=== PATIENT | female | born 1990 | race Caucasian/White ===

== ENCOUNTER 2018-01-25 02:41 | Inpatient (IN) | payer BC ==
[2018-01-25 03:54] VITALS: BMI 33.1
[2018-01-25] MEDS ORDERED: Ondansetron HCl/PF 4 MG/2 ML Vial IVP PRN ×3 (04:13→14:48)
[2018-01-25] MEDS ORDERED: Acetaminophen 500 MG TAB PO PRN (04:13)
[2018-01-25] MEDS ORDERED: Butorphanol Tartrate 1 MG/ML VIAL SLOW IVP PRN (04:13)
[2018-01-25] MEDS ORDERED: Promethazine HCl 25 MG/ML VIAL IM PRN ×2 (04:13→09:17)
[2018-01-25] MEDS ORDERED: Lidocaine 1% (PF) 30 ML VIAL SC PRN (04:15)
[2018-01-25] MEDS ORDERED: Misoprostol 200 MCG TAB RC PRN (04:15)
[2018-01-25] MEDS ORDERED: Methylergonovine 0.2 MG/ML VIAL IM PRN (04:15)
[2018-01-25] MEDS ORDERED: Carboprost 250 MCG/ML AMP IM PRN (04:15)
[2018-01-25] MEDS ORDERED: HYDROcodone/Acetaminophen 5/325 mg Tablet PO PRN ×4 (04:15→14:48)
[2018-01-25] MEDS ORDERED: Ibuprofen 800 MG TAB PO PRN (04:15)
[2018-01-25] MEDS ORDERED: NS / Oxytocin 40 units/1000ml 1,000 ML IV SCH ×2 (04:15→14:48)
[2018-01-25] MEDS ORDERED: NS w/ Oxytocin 10 units 500 ML IV SCH ×2 (04:15)
[2018-01-25] MEDS: Misoprostol 100 MCG TAB PO SCH ×2 (04:35→15:24)
[2018-01-25] MEDS: Lactated Ringer's 1,000 ML IV SCH ×2 (04:35→15:24)
[2018-01-25 04:50] LABS: Hemoglobin 11.3 g/dL (12.0-16.0); Mean Corpuscular HGB CONC 32.8 g/dL (32.0-36.0); Mean Corpuscular Hemoglobin 30.9 pg (27.0-31.0); Mean Corpuscular Volume 94.1 fL (78.0-98.0); Mean Platelet Volume 8.3 fL (7.4-10.4); Platelet Count 203 thou/uL (130-400); RBC Distribution Width 14.7 % (11.5-14.5); Red Blood Cell (RBC) Count 3.67 mill/uL (4.20-5.40); White Blood Cell (WBC) Count 9.7 thou/uL (4.8-10.8)
[2018-01-25 05:08] LABS: HBSAg Index 0.33 S/CO (0-0.99); Hep B Surf Ag Non-Reactive S/CO (NonReactive)
[2018-01-25 05:45] LABS: Syphilis Antibody Nonreactive (Nonreactive); Syphilis Antibody Index 0.04 S/CO (<1.00 Non-Reactive)
[2018-01-25] MEDS ORDERED: Fentanyl 4 mcg/Bup 0.1% Cadd 100 ML ONE (08:21)
[2018-01-25] MEDS ORDERED: Naloxone HCl 0.4 mg/ml Vial IVP PRN ×2 (09:17)
[2018-01-25] MEDS ORDERED: diphenhydrAMINE 50 MG/ML VIAL IVP PRN (09:17)
[2018-01-25] MEDS ORDERED: Acetaminophen 325 MG TAB PO PRN (09:17)
[2018-01-25] MEDS ORDERED: ePHEDrine/0.9% NaCl/PF SYRINGE 50 mg/10 ml SLOW IVP PRN (09:17)
[2018-01-25] MEDS ORDERED: Eucerin (Mineral Oil/Petrolatum,White) 30 gm Jar TOP PRN (09:17)
[2018-01-25] MEDS ORDERED: Lactated Ringer's 500 ML IV PRN (09:17)
[2018-01-25] MEDS ORDERED: Communication Order-Pharmacy FS SCH (09:30)
[2018-01-25] MEDS ORDERED: Fentanyl 4 mcg/Bupivacaine 0.1% Cassette 100 ML EPIDURAL SCH (09:30)
--- NOTE | 2018-01-25 09:40 | PDOC.LDHP ---
Labor and Delivery H&P Chief complaint: loss of fluid HPI: 28yo at 39w by LMP with SROM early this morning, s/p cytotec 50mcg po x 1, now in active labor and working epidural. Current gestational age (weeks): 39 Dating criteria: last menstrual period Grav: 1 Para: 0 Current complications: none Abnormal US findings: No Past Medical History: proteinuria Current medications: pre- vitamins Previous surgical history: other (tibia surgery, wisdom teeth) Allergies/Adverse Reactions: Allergies Allergy/AdvReac Type Severity Reaction Status Date / Time No Known Allergies Allergy Verified 01/25/18 03:55 Social history: none - Physical Exam Vital signs reviewed and normal: yes General: NAD Heart: RRR Lungs: CTAB Abdomen: gravid Extremeties: no edema FHT: category 1 [place] contractions every: 3min - OB Labs RH: positive Antibody Screen: negative HIV: negative RPR: negative HEPSAg: negative 1 hour GCT: negative GBS: negative Urine drug screen: negative Rubella: immune - Assessment L&D Assessment: term rupture in membranes - Plan Plan: admit to L&D, labor augmentation if indicated, informed consent obtained
--- NOTE | 2018-01-25 10:57 | PDOC.OPDEL ---
OB Operative/Delivery Note Delivery Dr/Surgeon: Swapna Assist: n/a Pre-Delivery Diagnosis: ruptured membrane Procedure/Post Delivery Dx: spontaneous vaginal delivery Weeks gestation: 38 Anesthesia: epidural - Findings A Sex: female - 1 min: 8 - 5 min: 9 - Additional Findings/Plan Placenta delivered: spontaneous Repaired Obstetrical Laceration: 2nd degree (repaired with 2-0 vicryl in usual fashion, excellent hemostasis) Estimated blood loss: 300, qbl pending Post delivery plan: routine recovery
[2018-01-25] MEDS ORDERED: diphenhydrAMINE 25 MG CAP PO PRN (14:48)
[2018-01-25] MEDS ORDERED: Milk Of Magnesia 30 ML UDCUP PO PRN (14:48)
[2018-01-25] MEDS ORDERED: Lanolin Ointment 7 GM TUBE TOP PRN (14:48)
[2018-01-25] MEDS ORDERED: Benzocaine/Menthol 20-0.5% 60 ML CAN TOP PRN (14:48)
[2018-01-25] MEDS ORDERED: Bisacodyl 10 MG SUPP PR PRN (14:48)
[2018-01-25] MEDS ORDERED: Preparation H Ointment 28 GM TUBE PR PRN (14:48)
[2018-01-25] MEDS ORDERED: Adacel (T-DAP) 0.5 ML VIAL IM ONE (14:48)
[2018-01-25] MEDS: Ibuprofen 800 MG TAB PO SCH ×2 (15:06→23:24)
[2018-01-25] MEDS: Ferrous Sulfate 325 MG TAB PO SCH (15:23)
[2018-01-25] MEDS: Docusate Calcium (SURFAK) 240 MG CAP PO SCH (21:32)
[2018-01-26] MEDS: Ibuprofen 800 MG TAB PO SCH ×3 (06:41→22:29)
[2018-01-26] MEDS: Ferrous Sulfate 325 MG TAB PO SCH ×2 (07:49→17:17)
--- NOTE | 2018-01-26 07:51 | PDOC.PP ---
Post Progress Note Post Day #: 1 PO intake tolerated: yes Flatus: yes Ambulation: yes Vital Signs (12 hours) Temp Pulse Resp BP Pulse Ox 01/26/18 07:45 98.0 F 74 20 123/69 98 01/26/18 04:45 98.6 F 70 18 128/64 97 01/25/18 23:24 98.3 F 84 18 132/78 01/25/18 20:17 98.2 F 77 18 119/56 L 96 Weight Weight 193 lb - Physical Examination General: NAD Cardiovascular: RRR Respiratory: non-labored breathing Abdominal: no distention, appropriately TTP Fundus firm & at: umb Extremities: negative homans (B) Skin: no rash Neurological: no gross focal deficits Psychiatric: normal affect Result Diagrams: 01/25/18 04:24 Additional Labs: Post Labs Blood Type O POSITIVE 01/25/18 04:24 Hep Bs Antigen Non-Reactive S/CO (NonReactive) 01/25/18 04:24 - Assessment/Plan PPD1 s/p TSVD VSSAF Doing well appropriate lochia, pain controlled Rh pos RImm Cont PP care.
[2018-01-26] MEDS: Docusate Calcium (SURFAK) 240 MG CAP PO SCH ×2 (09:37→22:29)
[2018-01-26] MEDS: Prenatal Vitamin 1 TAB PO SCH (09:37)
[2018-01-27] MEDS: Ibuprofen 800 MG TAB PO SCH ×2 (06:25→13:48)
[2018-01-27 07:56] VITALS: BP 116/61; TEMP 98
--- NOTE | 2018-01-27 08:04 | PDOC.PP ---
Post Progress Note Post Day #: 2 PO intake tolerated: yes Flatus: yes Ambulation: yes Vital Signs (12 hours) Temp Pulse Resp BP Pulse Ox 01/27/18 07:54 98.0 F 64 18 116/61 96 01/26/18 20:16 97.6 F 73 18 125/66 97 Weight Weight 193 lb - Physical Examination General: NAD Cardiovascular: RRR Respiratory: non-labored breathing Abdominal: no distention, appropriately TTP Fundus firm & at: umb-2 Extremities: negative homans (B) Skin: no rash Neurological: no gross focal deficits Psychiatric: normal affect Result Diagrams: 01/25/18 04:24 Additional Labs: Post Labs Blood Type O POSITIVE 01/25/18 04:24 Hep Bs Antigen Non-Reactive S/CO (NonReactive) 01/25/18 04:24 - Assessment/Plan PPD2 s/p TSVD VSSAF Doing well no issues s/p LC Rhpos RImm DC home FU 6wk
[2018-01-27] MEDS: Ferrous Sulfate 325 MG TAB PO SCH (08:45)
[2018-01-27] MEDS: Prenatal Vitamin 1 TAB PO SCH (08:45)
[2018-01-27] MEDS: Docusate Calcium (SURFAK) 240 MG CAP PO SCH (08:45)
== END 2018-01-27 14:20 | disposition home or self-care (01) | DRG 807 ==
LOC: L&D/OP 02:41 → L&D 03:34 → 3SW 14:47
PROVIDERS: ADMIT Student in an Organized Health Care Education/Training Program; ATTEND Student in an Organized Health Care Education/Training Program
PROC: 10E0XZZ Delivery of Products of Conception, External Approach (ICD-10-PCS; principal; 2018-01-25)
PROC: 0KQM0ZZ Repair Perineum Muscle, Open Approach (ICD-10-PCS; 2018-01-25)
DX: O70.1 Second degree perineal laceration during delivery (principal); Z37.0 Single live birth; Z3A.38 38 weeks gestation of pregnancy
CPT/HCPCS: 36415; 51702; 85027; 86780; 86850; 86900; 86901; 87340; 99285; J0595; J2001